=== PATIENT | male | born 1985 | race Caucasian/White ===

== ENCOUNTER 2016-05-04 21:27 | Emergency (ER) | payer MEDICAID, OTHER ==
[2016-05-04 22:27] VITALS: BP 110/65
--- NOTE | 2016-05-05 09:16 | UC ---
Skin Complaint HPI - HPI Summary HPI Summary: 31 yo gentleman presents to the [facility], c/o several days (approx 1 week) of a rash , mostly left abd / flank / chest, extending to left neck and crossing to the right chest and abd. Non-pruritic. Subj fever feeling and malaise approx 3-4 days ago. No cough / sob / cp / palpitations. No gi issues. No p/d/w. No headache. 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 Did get bit by a tick to R inner thigh in July 2015. Did not seek medical attention at the time. Reports that the tick bite site never healed normally, with remaining raised area that is pruritic. No streaking redness. - History of Current Complaint Chief Complaint: UCRash Time Seen by Provider: 05/04/16 22:38 Stated Complaint: RASH Hx Obtained From: Patient, Family/Contracts Manager Onset/Duration: Gradual Onset Skin Exposure Onset/Duration: Days Ago Onset Severity: Mild Current Severity: Moderate Pain Intensity: 0 Pain Scale Used: 0-10 Numeric - Allergy/Home Medications Allergies/Adverse Reactions: Allergies Allergy/AdvReac Type Severity Reaction Status Date / Time No Known Allergies Allergy Verified 08/05/14 08:34 Review of Systems Constitutional: Fever Skin: Other - see hpi Eyes: Negative ENT: Negative Respiratory: Negative Cardiovascular: Negative Gastrointestinal: Negative Genitourinary: Negative Motor: Negative Neurovascular: Negative Musculoskeletal: Other: - last few days + arthralgias and myalgias, nonspecific Neurological: Negative Psychological: Negative All Other Systems Reviewed And Are Negative: Yes PMH/Surg Hx/FS Hx/Imm Hx Previously Healthy: Yes - has not seen a doctor since childhood, with the exception a jaw injury Endocrine History Of: Denies: Diabetes, Thyroid Disease Cardiovascular History Of: Denies: Cardiac Disorders, Hypertension Respiratory History Of: Denies: COPD, Asthma GI/ History Of: Denies: Ulcer - Surgical History Surgical History: None Surgery Procedure, Year, and Place: Denies - Social History Alcohol Use: None Substance Use Type: None Smoking Status (MU): Former Smoker Type: Cigarettes, Smokeless Tobacco Amount Used/How Often: 1/2 PPD Length of Time of Smoking/Using Tobacco: 4 Have You Smoked in the Last Year: Yes When Did the Patient Quit Smoking/Using Tobacco: 2011 - Immunization History Most Recent Influenza Vaccination: denies Physical Exam Triage Information Reviewed: Yes Appearance: Well-Appearing, Well-Nourished - sitting up Vital Signs: Initial Vital Signs Temp 98.4 F 05/04/16 22:19 Pulse 70 05/04/16 22:19 Resp 16 05/04/16 22:19 BP 110/65 05/04/16 22:19 Pulse Ox 99 05/04/16 22:19 Vital Signs Reviewed: Yes Eye Exam: Normal ENT Exam: Normal Neck exam: Normal Neck: Positive: Supple, Nontender, No Lymphadenopathy Respiratory Exam: Normal Respiratory: Positive: Chest non-tender, Lungs clear, Normal breath sounds, No respiratory distress, No accessory muscle use Cardiovascular Exam: Normal Cardiovascular: Positive: RRR, No Murmur, Pulses Normal, Brisk Capillary Refill Abdominal Exam: Normal Abdomen Description: Positive: Nontender, No Organomegaly, Soft Bowel Sounds: Positive: Present Musculoskeletal Exam: Normal - nonfocal. Moves all 4 ext's. Gait steady. Neurological Exam: Normal Psychological Exam: Normal - conversing easily and appropriately. NAD. Skin Exam: Other - Left flank, chest, neck - extending to right side - noteworthy for macular slightly -raised patches. Several, irregular shaped, max diam approx 1cm. Does not flouresce w/ blue light. No streaking. R inner thigh with firm raised area mild red at site of previously reported tick bite. Denies inguinal adenopathy. No axillary or neck adenopathy appreciated. Course/Dx - Course Course Of Treatment: No new problems while in [facility]. Pt and mom are concerned about possible tick borne illness, erasmo given hx of bite, and high outdoor exposure. Has not been rxd or tested for lyme. No fever today, but has felt feverish and tired. Will check lyme / tick panel, crp /sed r / cbc. Strongly encourage f/u pcp, which he is planning to do. [facility] ref # given in case he needs further assistance. Rx doxycycline. Suspicion is present for tick borne illness. Although c/n exclude other based simply on today's exam. Hence need for f/u. Pt and his mom were given the opportunity to ask several questions, to which I answered to the best of my ability. - Diagnoses Provider Diagnoses: Rash. Possible tick borne illness. Discharge - Discharge Plan Condition: Stable Disposition: HOME Prescriptions: Clotrimazole/Betamethasone* [Lotrisone Cream*] 1 applic TOPICAL BID #2 tube DOXYcycline CAP(*) [DOXYcycline 100MG CAP(*)] 100 mg PO BID #56 cap Patient Education Materials: Lyme Disease (ED), Dermatitis (ED) Referrals: [facility] [Outside] Additional Instructions: Follow up with a primary care physician in the next 2 weeks. Seek medical attention sooner for worse or new problems. Blood tests, including lyme test, has been sent.
[2016-05-05 12:51] LABS: Hematocrit 38 % (42-52); Hemoglobin 12.8 g/dl (14.0-18.0); Mean Corpuscular HGB Conc 34 g/dl (31-36); Mean Corpuscular Hemoglobin 29 pg (27-31); Mean Corpuscular Volume 87 fL (80-94); Mean Platelet Volume 7 um3 (7.4-10.4); Red Blood Count 4.36 10^6/ul (4.0-5.4); Red Cell Distribution Width 13 % (10.5-15); White Blood Count 9.3 10^3/ul (3.5-10.8)
[2016-05-05 13:47] LABS: Erythrocyte Sed Rate 10 mm/Hr (0-14)
[2016-05-08 20:45] LABS: B. miyamotoi PCR, B Negative (Negative); Babesia divergens/MO-1 Negative (Negative); Babesia ducani Negative (Negative); Ehrlichia ewingii/canis Negative (Negative)
== END 2016-05-04 23:27 | disposition home or self-care (01) ==
LOC: UCEAST 21:27
DX: R21 Rash and other nonspecific skin eruption (principal); S70.361S Insect bite (nonvenomous), right thigh, sequela; W57.XXXS Bitten or stung by nonvenomous insect and other nonvenomous arthropods, sequela; Z87.891 Personal history of nicotine dependence
CPT/HCPCS: 36415; 85025; 85652; 86140; 86618; 87798; 99212; G0463